=== PATIENT | male | born 1950 | race Caucasian/White ===

== ENCOUNTER 2018-09-10 05:51 | Day surgery (SDC) | payer MEDICARE ==
[~2018-09-10 05:51] MED LIST: AMIT50 PO; Fiorinal Capsu1 EACH PO; IBUHYD PO; IBUP800 PO; NORT10 PO; Naltrexone HCl50 MG PO; SUMA25 PO; [UNRECOGNIZED DRUG - OTHER] PO
--- NOTE | 2018-09-10 06:25 | NUR ---
History, Chart, Medications and Allergies reviewed before start of procedure. Patient confirms NPO status and agrees with scheduled surgery. Patient States Post-Procedure ride home has been arranged with his .
--- NOTE | 2018-09-10 06:55 | NUR ---
Patient reports completing Chlorhexadine shower X2 prior to admission to hospital.
--- NOTE | 2018-09-10 07:51 | NUR ---
09/10/18 0751 José Miguel Sherman NO BIOLOGICAL IMPLANTS WERE RECONSTITUTED.
--- NOTE | 2018-09-10 09:03 | NUR ---
2X2 GAUZE DRESSING UNDER CLEAR OCCLUSIVE DRESSING. CLEAN, DRY, INTACT WITH NO VISIBLE DRAINAGE, SWELLING OR BRUISING . ABDOMEN SOFT TO TOUCH AROUND DRESSING.
--- NOTE | 2018-09-10 10:26 | NUR ---
1000- Discharge instructions reviewed with patient. Patient verbalizes understanding. Copy given to patient to take home. Prescription given to to fill. 1015- UP TO DRESS. GAIT STEADY.
== END 2018-09-10 22:37 | disposition home or self-care (01) ==
LOC: ORSCMMR 05:51 → ORD 07:30 → ORSCMMR 07:30
PROVIDERS: Surgery
PROC: 0WQF0ZZ Repair Abdominal Wall, Open Approach (ICD-10-PCS; principal; 2018-09-10 07:30)
DX: K42.9 Umbilical hernia without obstruction or gangrene (principal); Z79.899 Other long term (current) drug therapy
CPT/HCPCS: A9270-GY; J0690; J1100; J1885; J2250; J2405; J2704; J2710; J3010; J7120

== ENCOUNTER 2020-09-09 07:27 | Day surgery (SDC) | payer MEDICARE ==
[~2020-09-09] VITALS: Ht 172.7 cm; Wt 86.6 kg
== END 2020-09-09 11:25 | disposition home or self-care (01) ==
LOC: ORSCSDS 07:27
PROVIDERS: Orthopaedic Surgery
PROC: 0SBC4ZZ Excision of Right Knee Joint, Percutaneous Endoscopic Approach (ICD-10-PCS; principal; 2020-09-09 08:45)
DX: S83.241A Other tear of medial meniscus, current injury, right knee, initial encounter (principal); S83.281A Other tear of lateral meniscus, current injury, right knee, initial encounter; M22.41 Chondromalacia patellae, right knee; Z79.899 Other long term (current) drug therapy
CPT/HCPCS: A9270; J0171; J0690; J1100; J1885; J2250; J2405; J2704; J3010; J7120

== ENCOUNTER → 2021-06-29 | Outpatient (CLI) | payer MEDICARE ==
[2021-06-30 23:37] LABS: Alanine Aminotransfer (ALT/SGP 34 U/L (12-78); Albumin, Blood 4.3 g/dL (3.4-5.0); Albumin/Globulin Ratio 1.4 (0.8-1.8); Alk Phos 72 U/L (50-136); Anion Gap 7 mmol/L (6-16); Aspartate Aminotrans (AST/SGOT 28 U/L (12-37); Bilirubin, Total 0.7 mg/dL (0.1-1.0); Blood Urea Nitrogen 16 mg/dL (8-24); Bun/Creatinine Ratio 17.6 (12.0-20.0); CO2, Blood 26 mmol/L (21-32); Calcium, Blood 8.7 mg/dL (8.5-10.1); Chloride, Blood 107 mmol/L (98-108); Creatinine, Blood 0.91 mg/dL (0.60-1.20); Glomerular Filtration Rate >60 (60-); Glucose, Blood 90 mg/dL (70-99); Sodium, Blood 140 mmol/L (136-145); Total Protein, Blood 7.3 g/dL (6.4-8.2)
== END | disposition home or self-care (01) ==
LOC: LAB 13:38 → LAB SHORT 13:38
PROVIDERS: Hospitalist
DX: B35.1 Tinea unguium (principal); Z79.899 Other long term (current) drug therapy
CPT/HCPCS: 80053

== ENCOUNTER → 2023-05-29 | Outpatient (CLI) | payer MEDICARE, OTHER | LOC: LAB 07:59 → LAB SHORT 07:59 | DX: L60.2 Onychogryphosis (principal); B35.1 Tinea unguium | CPT/HCPCS: 88305; 88312 ==

== ENCOUNTER → 2025-04-29 | Outpatient (CLI) | payer MEDICARE, OTHER ==
[2025-04-29 15:11] LABS: BASOPHILS ABSOLUTE AUTO 0.04 K/mm3 (0.00-0.23); BASOPHILS PERCENT AUTO 1 % (0-2); EOSINOPHILS ABSOLUTE AUTO 0.19 K/mm3 (0.00-0.68); EOSINOPHILS PERCENT AUTO 5 % (0-6); Hematocrit 39.2 % (37.0-53.0); Hemoglobin 13.3 g/dL (13.5-17.5); IMMATURE GRAN ABSOLUTE AUTO 0.01 K/mm3 (0.00-0.10); IMMATURE GRAN PERCENT AUTO 0 % (0-1); LYMPHOCYTES ABSOLUTE AUTO 1.36 K/mm3 (0.84-5.20); LYMPHOCYTES PERCENT AUTO 32 % (21-46); MONOCYTES ABSOLUTE AUTO 0.30 K/mm3 (0.16-1.47); MONOCYTES PERCENT AUTO 7 % (4-13); Mean Corpuscular HGB Conc 33.9 g/dL (31.5-36.5); Mean Corpuscular Volume 90 fL (80-100); NEUTROPHILS ABSOLUTE AUTO 2.35 K/mm3 (1.96-9.15); NEUTROPHILS PERCENT AUTO 55 % (41-73); NRBC ABSOLUTE 0.00 K/mm3 (0.00-0.02); NRBC Auto 0.0 /100 WBC (0.0-0.2); Platelet Count 268 K/mm3 (150-400); RDW Coefficient Variation 12.6 % (11.7-14.2); RDW Standard Deviation 41.3 fL (35.1-46.3)
[2025-04-29 15:41] LABS: Prostate Specific Antigen 3.050 ng/mL (0.000-4.000)
[2025-05-06 12:45] LABS: TESTOSTERONE, FREE BY DIALYSIS 34.5 pg/mL (47.0-244.0); TESTOSTERONE, TOTAL MASS SPEC 525.8 ng/dL (300.0-720.0)
== END ==
LOC: LAB 08:30 → LAB SHORT 08:30
PROVIDERS: Hospitalist
DX: Z12.5 Encounter for screening for malignant neoplasm of prostate (principal); R68.82 Decreased libido; M47.892 Other spondylosis, cervical region; R53.83 Other fatigue
CPT/HCPCS: 84402; 84403; 85025; G0103